=== PATIENT | male | born 1980 | race Two or more races ===

== ENCOUNTER 2018-07-09 13:53 | Emergency (ER) | payer OTHER ==
[2018-07-09 13:58] VITALS: BP 155/96
[2018-07-09] MEDS ORDERED: CEPHALEXIN 500 MG CAPSULE PO ONE (14:14)
--- NOTE | 2018-07-09 14:15 | ER Document Report ---
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 Patient's tetanus is currently up -to-date. Exacerbated by: Denies Relieved by: Denies Similar symptoms previously: No Recently seen / treated by doctor: No - ROS ROS below otherwise negative: Yes Systems Reviewed and Negative: Yes All other systems reviewed and negative - CONSTITUTIONAL Constitutional: DENIES: Fever, Chills - MUSCULOSKELETAL Musculoskeletal: REPORTS: Extremity pain - DERM Skin Color: Normal Skin Problems: Puncture Wound Past Medical History - General Information source: Patient - Social History Smoking Status: Current Every Day Smoker Smoking Education Provided: Yes Frequency of alcohol use: None Drug Abuse: None Occupation: [employer] Family History: Reviewed & Not Pertinent - Past Medical History Cardiac Medical History: Reports: Hx Hypertension Past Surgical History: Reports: Hx Herniorrhaphy - Immunizations Hx Diphtheria, Pertussis, Tetanus Vaccination: Yes Vertical Provider Document - CONSTITUTIONAL Agree With Documented VS: Yes Exam Limitations: No Limitations General Appearance: WD/WN, No Apparent Distress - INFECTION CONTROL TRAVEL OUTSIDE OF THE [place] IN LAST 30 DAYS: No - HEENT HEENT: Atraumatic, Normocephalic - NECK Neck: Normal Inspection - RESPIRATORY Respiratory: Breath Sounds Normal, No Respiratory Distress - CARDIOVASCULAR Cardiovascular: Regular Rate, Regular Rhythm Pulses: Normal: Radial - MUSCULOSKELETAL/EXTREMETIES Musculoskeletal/Extremeties: MAEW, Tender - r forearm tenderness - NEURO Level of Consciousness: Awake, Alert, Appropriate Motor/Sensory: No Motor Deficit - DERM Integumentary: Warm, Dry Notes: Patient with palpable foreign body to right forearm Course - Re-evaluation Re-evalutation: 07/09/18 15:27 2 splinters removed from right forearm after area was anesthetized with 1% plain Xylocaine. Wound was probed with 18-gauge needle and there was suspicion that patient may have additional foreign body in the arm. Dr Rodriguez to bedside for attempt at foreign body removal. Dr Rodriguez does not feel that there is any remaining foreign body and suspects that splinter has already been completely removed. Dr. Rodriguez packed wound with quarter inch iodoform gauze and recommended having patient return in 2 days for wound recheck. Good return precautions given to patient, patient encouraged to return sooner for any signs of infection. - Vital Signs Vital signs: Temp Pulse Resp BP Pulse Ox 97.9 F 94 14 155/96 H 97 07/09/18 13:57 07/09/18 13:57 07/09/18 13:57 07/09/18 13:57 07/09/18 13:57 Discharge - Discharge Clinical Impression: Splinter in skin Condition: Stable Disposition: HOME, SELF-CARE Instructions: Cephalexin ([facility]), Removal of Subcutaneous Foreign Object ([facility]) Additional Instructions: Return immediately for any new or worsening symptoms Followup with your primary care provider, call tomorrow to make a followup appointment Return in 2 days to have wound rechecked and packing removed. Return sooner for any redness, fever, purulent drainage, increased swelling or any concerning symptoms. Prescriptions: Cephalexin Monohydrate [Keflex 500 mg Capsule] 500 mg PO Q6H 5 Days capsule Forms: Smoking Cessation Education Referrals: [facility] [Provider Group] - Follow up as needed
== END 2018-07-09 16:10 | disposition home or self-care (01) ==
LOC: ER 13:53
DX: S50.851A Superficial foreign body of right forearm, initial encounter (principal); W45.8XXA Other foreign body or object entering through skin, initial encounter; Y93.89 Activity, other specified; Y92.511 Restaurant or cafe as the place of occurrence of the external cause; F17.200 Nicotine dependence, unspecified, uncomplicated; I10 Essential (primary) hypertension
CPT/HCPCS: 99282; A6266

== ENCOUNTER 2018-07-11 12:28 | Emergency (ER) | payer OTHER ==
[2018-07-11 12:38] VITALS: BP 130/86
--- NOTE | 2018-07-11 13:01 | ER Document Report ---
HPI - HPI Pain Level: 3 Notes: Patient is a 38-year-old male no significant past medical history since to the ED for wound recheck. Patient was in the emergency department 2 days ago for splinter removal and had packing placed status post procedure. Patient states that he has not noticed any worsening symptoms. He has not noticed any purulent discharge. He has been changing the dressing daily since his discharge. Denies any drug allergies. No other concerns or complaints. He is taking his medicines as directed. Denies any headache, fever, URI, sore throat , chest pain, palpitations, syncope, cough, shortness of breath, wheeze, dyspnea , abdominal pain, nausea/vomiting/diarrhea, urinary retention, dysuria, hematuria, numbness/tingling, muscle paralysis/weakness, or rash. - ROS Systems Reviewed and Negative: Yes All other systems reviewed and negative - CONSTITUTIONAL Constitutional: DENIES: Fever, Chills - EENT EENT: DENIES: Sore Throat, Ear Pain, Eye problems - NEURO Neurology: DENIES: Headache, Weakness, Vision blurred, Dizzinesss / Vertigo - CARDIOVASCULAR Cardiovascular: DENIES: Chest pain - RESPIRATORY Respiratory: DENIES: Trouble Breathing, Coughing - MUSCULOSKELETAL Musculoskeletal: DENIES: Extremity pain Past Medical History - Social History Smoking Status: Never Smoker Chew tobacco use (# tins/day): No Frequency of alcohol use: None Drug Abuse: None Family History: Reviewed & Not Pertinent Patient has suicidal ideation: No Patient has homicidal ideation: No - Past Medical History Cardiac Medical History: Reports: Hx Hypertension Renal/ Medical History: Denies: Hx Peritoneal Dialysis Past Surgical History: Reports: Hx Herniorrhaphy - Immunizations Hx Diphtheria, Pertussis, Tetanus Vaccination: Yes Vertical Provider Document - CONSTITUTIONAL Agree With Documented VS: Yes Notes: PHYSICAL EXAMINATION: GENERAL: Well-appearing, well-nourished and in no acute distress. LUNGS: Breath sounds clear to auscultation bilaterally and equal. No wheezes rales or rhonchi. HEART: Regular rate and rhythm without murmurs, rubs, gallops. Musculoskeletal: Rt arm: FROM to passive/active. Strength 5+/5. N/V intact distal. NEUROLOGICAL: Normal speech, normal gait. Normal sensory, motor exams PSYCH: Normal mood, normal affect. SKIN: rt forearm: no erythema, streaks, or purulent discharge. Packing in place and removed. wound irrigated and new packing placed. Non-tender. - INFECTION CONTROL TRAVEL OUTSIDE OF THE [place] IN LAST 30 DAYS: No Course - Re-evaluation Re-evalutation: 07/11/18 13:00 Patient is an afebrile, well-hydrated, 38-year-old male who presents to the ED the for recheck of his wound on his right forearm. Vitals are acceptable. PE is otherwise unremarkable. Patient's packing was removed without any complications and new packing was placed. Wound dressing was placed and wound instructions reviewed. Reviewed with patient that he may remove the packing in 2-3 days and may apply another small piece of packing to the wound if needed at home. Patient is to continue taking his antibiotic as directed. Recheck with your PCM in 3-5 days. Return to the ED with any worsening/concerning symptoms otherwise as reviewed. Patient is in agreement. - Vital Signs Vital signs: Temp Pulse Resp BP Pulse Ox 98.3 F 84 18 130/86 H 97 07/11/18 12:36 07/11/18 12:36 07/11/18 12:36 07/11/18 12:36 07/11/18 12:36 Discharge - Discharge Clinical Impression: Encounter for wound re-check Condition: Stable Disposition: HOME, SELF-CARE Additional Instructions: Keep the skin clean Wash with soap and water Tylenol/ibuprofen if needed Triple antibiotic ointment daily Take medication as directed Monitor for any worsening symptoms Recheck with your PCM in 3-5 days Return to the ED with any worsening symptoms and/or development of fever, headache, chest pain, palpitations, syncope, shortness of breath, trouble breathing, abdominal pain, n/v/d, abscess, purulent discharge, red streaks, worsening swelling, or other worsening symptoms that are concerning to you. Forms: Elevated Blood Pressure Referrals: [facility] [Provider Group] - Follow up as needed [facility] [Provider Group] - Follow up as needed
== END 2018-07-11 13:13 | disposition home or self-care (01) ==
LOC: ER 12:28
DX: Z48.01 Encounter for change or removal of surgical wound dressing (principal); I10 Essential (primary) hypertension
CPT/HCPCS: 99282; A6266